=== PATIENT | female | born 1980 | race Caucasian/White ===

== ENCOUNTER → 2016-07-19 | Outpatient (CLI) | payer OTHER ==
--- NOTE | 2016-07-19 11:37 | USB ---
Reason for exam: clinical finding. Indicated problem(s): palpable abnormality in the left breast. Physical Findings: Nurse did not find any significant physical abnormalities on exam. US Breast LT Left breast ultrasound includes all four quadrants, the retroareolar region and axilla. Finding demonstrate no cystic or solid lesion seen. Normal node noted in axilla. These results were verbally communicated with the patient and result sheet given to the patient on 07/19/16. ASSESSMENT: Benign, BI-RAD 2 RECOMMENDATION: Routine screening mammogram of both breasts at age 42. Manage patient on a clinical basis.
== END ==
LOC: RADUSWWP 09:39
PROVIDERS: ATTEND Obstetrics & Gynecology
DX: N63 Unspecified lump in breast (principal)

== ENCOUNTER → 2021-08-20 | Outpatient (CLI) | payer BC, OTHER ==
--- NOTE | 2021-08-24 17:28 | MM ---
Reason for Exam: Screening (asymptomatic). Baseline mammogram. Patient History: Menarche at age 15. First Full-Term at age 24. Hormonal Contraceptives, from age 20 until age 24. 04/27/2014, Bilateral Implants. 04/2014, Implant on the right side. Last menstrual period: 07/19/2021 Risk Values: Marlene 5 year model risk: 0.5%. NCI Lifetime model risk: 9.1%. Film Views: Bilateral CC views were taken. Bilateral MLO views were taken. Bilateral CCID views were taken. Bilateral MLOID views were taken. Prior Study Comparison: Patient's first Mammogram. No prior studies available for comparison. Tissue Density: The breast tissue is heterogeneously dense. This may lower the sensitivity of mammography. Findings: Analyzed By CAD. Retropectoral silicone implants are demonstrated bilaterally. No significant mass, suspicious microcalcifications, or other discrete abnormality is seen. Overall Assessment: Negative, BI-RAD 1 Management: Screening Mammogram of both breasts in 1 year. A clinical breast exam by your physician is recommended on an annual basis and results should be correlated with mammographic findings. Also, the patient should continue monthly self breast exams. Electronically signed and approved by: Arpan Bolden M.D. Radiologist
== END | disposition home or self-care (01) ==
LOC: RADMAMWWP 09:32
PROVIDERS: ATTEND Obstetrics & Gynecology
DX: Z12.31 Encounter for screening mammogram for malignant neoplasm of breast (principal)
CPT/HCPCS: 77067